=== PATIENT | female | born 1995 | race Caucasian/White ===

== ENCOUNTER 2019-04-25 21:32 | Emergency (ER) | payer OTHER ==
[~2019-04-25] VITALS: Ht 162.6 cm; Wt 63.5 kg
[2019-04-25] MEDS ORDERED: SULFAMETH/TRIMETH 800/160 MG TABLET ONE (22:15)
[2019-04-25] MEDS ORDERED: SULFAMETH/TRIMETH 800/160 MG TABLET PO ONE (22:15)
[2019-04-25 22:17] VITALS: BP 138/72
--- NOTE | 2019-04-25 22:17 | NUR ---
Patient discharged to home in stable conditon. Written and verbal after care instructions given. Patient verbalizes understanding of instructions. Pt walked out of ER in stable gait with staff member from rehab facility. Pt appears in no distress. vital signs stable.
== END 2019-04-25 22:18 | disposition home or self-care (01) ==
LOC: ER 21:35
DX: S00.81XA Abrasion of other part of head, initial encounter (principal); L08.9 Local infection of the skin and subcutaneous tissue, unspecified; F17.200 Nicotine dependence, unspecified, uncomplicated; F12.10 Cannabis abuse, uncomplicated; W54.1XXA Struck by dog, initial encounter; Y93.89 Activity, other specified; Y92.89 Other specified places as the place of occurrence of the external cause; Y99.8 Other external cause status
CPT/HCPCS: A4663